=== PATIENT | female | born 2000 | race Caucasian/White ===

== ENCOUNTER 2021-04-30 16:26 | Emergency (ER) | payer OTHER ==
[2021-04-30 17:03] LABS: BASOPHIL 0.7 % (0-2); EOSINOPHIL 0.7 % (0-5); HCT 36.5 % (37.0-47.0); HGB 12.6 g/dl (12.5-16.0); LYMPHOCYTE 14.6 % (15-48); MCH 30.4 pg (25.0-31.0); MCHC 34.5 g/dL (32.0-36.0); MCV 88.2 fL (78.0-100.0); MONOCYTE 13.4 % (0-12); MPV 10.4 fL (6.0-9.5); NEUTROPHIL 70.1 % (41-80); NRBC 0; PLT 181 K/uL (150-400); RBC 4.14 M/uL (4.20-5.40); RDW 12.2 % (11.5-14.0)
[2021-04-30 17:22] LABS: BUN/CREAT RATIO (CALC) 17.7 RATIO; CREATININE 0.79 mg/dL (0.51-0.95); POTASSIUM 3.9 mmol/L (3.5-5.1)
[2021-04-30 17:42] LABS: INFLUENZA A NAA NEGATIVE (NEGATIVE)
[2021-04-30 17:47] LABS: CORONAVIRUS 2019 SARS-COV-2 POSITIVE (NEGATIVE)
[2021-04-30 17:55] LABS: BILIRUBIN NEGATIVE (NEGATIVE); BLOOD 1+ Ery/uL (NEGATIVE); CLARITY CLEAR (CLEAR); COLOR YELLOW (YELLOW); GLUCOSE (U) NORMAL (NORMAL); LEUKOCYTES NEGATIVE Leu/uL (NEGATIVE); NITRITE NEGATIVE (NEGATIVE); PROTEIN NEGATIVE (NEGATIVE); SPECIFIC GRAVITY >=1.030 (1.001-1.030); UROBILINOGEN 0.2 mg/dL (0.2-1.0)
[2021-04-30 18:00] LABS: BACTERIA TRACE
== END 2021-04-30 19:51 | disposition home or self-care (01) ==
LOC: FER 16:26
PROVIDERS: Nurse Practitioner Family
DX: U07.1 COVID-19 (principal)
CPT/HCPCS: 36415; 71045; 71275; 80048; 81001; 85025; 85379; J2405; J7030; Q9967; U0002